=== PATIENT | female | born 1960 | race Caucasian/White ===

== ENCOUNTER 2019-12-16 08:00 | Outpatient (CLI) | payer MEDICARE | END 2019-12-16 10:00 | disposition home or self-care (01) | LOC: D.MAMMO 08:00 | PROVIDERS: ATTEND Clinical Nurse Specialist Adult Health | DX: Z12.31 Encounter for screening mammogram for malignant neoplasm of breast (principal) ==

== ENCOUNTER → 2020-02-10 10:38 | Outpatient (CLI) | payer MEDICARE | END | disposition home or self-care (01) | LOC: D.MRI 10:38 | PROVIDERS: ATTEND Orthopaedic Surgery | DX: M40.294 Other kyphosis, thoracic region (principal); M41.55 Other secondary scoliosis, thoracolumbar region; M54.2 Cervicalgia; R27.9 Unspecified lack of coordination; R29.3 Abnormal posture; Z91.81 History of falling; Z98.1 Arthrodesis status; Z96.89 Presence of other specified functional implants; G93.5 Compression of brain; G95.89 Other specified diseases of spinal cord ==